=== PATIENT | female | born 1950 | race African-American/Black ===

== ENCOUNTER 2021-12-05 12:23 | Emergency (ER) | payer OTHER, MEDICARE, SELFPAY ==
[2021-12-05] VITALS (33 sets, daily range): BP systolic 100–113; BP diastolic 53–59; PULSE 105–112; RESP 4–25; TEMP 37.1; O2SAT 91–100
--- NOTE | ~2021-12-05 | CT_ITS ---
EXAMINATION: CT brain wo con DATE: 12/05/2021 13:28 INDICATION: Lethargy TECHNIQUE: Computed tomography (CT) of the head was performed without intravenous contrast. Sagittal and coronal reconstructions were performed. The mA was adjusted according to patient size. Iterative reconstruction technique was employed. The dose-length product was 605.33 mGy-cm. COMPARISON: None FINDINGS: No acute intracranial hemorrhage, acute infarction or abnormal extra axial fluid collection. There is minimal scattered white matter hypoattenuation consistent with chronic small vessel ischemic disease . Ventricles are normal and symmetric. No mass/mass effect. Intracranial calcified cerebral atherosc lerosis is noted. The orbits, paranasal sinuses and mastoid air cells are normal. IMPRESSION: 1. Normal aging brain. No acute intracranial process. Reviewed, dictated and finalized at location A.
--- NOTE | ~2021-12-05 | XR_ITS ---
EXAMINATION: XR chest 1V DATE: 12/05/2021 13:30 INDICATION: Lethargy TECHNIQUE: frontal view of the chest was obtained. COMPARISON: None FINDINGS: Increased prominence of the left hilar and infrahilar bronchovascular pelvic or relative to the right which is likely due to some leftward rotation of the patient. No other airspace opacities, pulmonary edema, pleural effusion or pneumothorax. Heart size is normal. Mild to moderate degenerative skeleta l changes in the spine and at the left shoulder. IMPRESSION: 1. No acute cardiopulmonary disease. Reviewed, dictated and finalized at location A.
--- NOTE | 2021-12-05 12:33 | ED.AMS ---
HPI - Altered Mental Status General Chief Complaint: Altered Mental Status Stated Complaint: Lethargic Time Seen by Provider: 12/05/21 12:33 Source: EMS and RN notes reviewed Mode of arrival: EMS Limitations: clinical condition History of Present Illness HPI narrative: Patient is 71 years old -[place] female brought to the emergency room by ambulance from [facility] for increased lethargy low blood pressure and fever. No family member at the bedside at this time. Review of Systems Review of Systems: ROS unobtainable: Yes unobtainable due to medical condition Exam Narrative: General appearance: Well-developed, well-nourished, lethargic, responsive to painful stimulation only by moving her arms. Skin: Right medial 3 toes gangrene, open wound on the right distal lower leg, status post amputation left toes with thick purulent discharge leaking out of the medial side of the wound, open wound mid lower abdomen, no discharge, Head: Normocephalic, nontraumatic Eyes: Clear conjunctiva ENT: Dry oral cavity Neck: Supple, nontender Chest and respiratory: Mild diminution of air entry bilaterally with a scattered rhonchi and rales Heart: Tachycardia Abdomen: Soft, nontender, no organomegaly, quiet bowel sounds, left colostomy bag in place Vascular: Normal peripheral pulses, poor capillary reflex Neurologic: Responsive to painful stimulation Course Course Emergency Course: Patient's sister who has the power of slate trimmer requested to do nothing and send patient back to the long term.. She is telling me that patient does not wish to survive with a condition like this Hospice was contacted by our nurse, agreed with the long term return. Vital Signs Vital signs: Vital Signs Pulse Rate 110 H 12/05/21 12:27 Respiratory Rate 12 12/05/21 12:27 Blood Pressure 100/58 L 12/05/21 12:27 Pulse Oximetry 100 12/05/21 12:27 Oxygen Delivery Nasal Cannula 12/05/21 12:27 Oxygen Flow Rate 4 12/05/21 12:27 Temperature 37.1 C 12/05/21 13:37 Pulse Rate 110 H 12/05/21 17:01 Respiratory Rate 6 L 12/05/21 17:01 Blood Pressure 110/56 L 12/05/21 17:01 Pulse Oximetry 100 12/05/21 17:01 Oxygen Delivery Nasal Cannula 12/05/21 12:27 Oxygen Flow Rate 4 12/05/21 12:27 MDM - Altered Mental Status Imaging Data Radiologist's impression: Impressions Head CT 12/05/21 13:34 IMPRESSION: 1. Normal aging brain. No acute intracranial process. Chest X-Ray 12/05/21 13:36 IMPRESSION: 1. No acute cardiopulmonary disease. ECG Data EKG #1: Attestation: I personally reviewed and interpreted this ECG as follows: ECG completion date: 12/05/21 ECG completion time: 15:05 Interpretation: Sinus tachycardia at 118 bpm, low QRS complexes, nonspecific T wave abnormalities, abnormal EKG, no old EKG for comparison Critical Care Time Critical Care Time Critical Care Time: Yes Total Critical Care Time: 30 Discharge Plan Discharge Clinical Impression: Hospice care, Gangrenous toe, Left foot infection Patient Disposition: NH Long Term/Asst Living Condition: Serious Instructions: Antibiotic Form, Durable Power of Finish Patcher for Healthcare Decisions (ED), Surgical Site Infections (ED), Gangrene (DC) Additional Instructions: Oxygen as needed, morphine 4 mg IM every 4 hours as needed, Zofran 4 mg ODT every 4 hours as needed. Contact hospice for more details
--- NOTE | 2021-12-05 12:40 | ECG_ITS ---
Measurements Intervals [employer] Rate: 110 P: -10 CA: 144 QRS: 40 QRSD: 84 T: -10 QT: 316 QTc: 429 Interpretive Statements SINUS TACHYCARDIA LOW QRS VOLTAGE IN LIMB LEADS BORDERLINE ST-T WAVE ABNORMALITY- INFERIOR LEADS ABNORMAL ECG Electronically Signed On 12-05-2021 12:48:30 CDT by Darrius Lara D.O.
--- NOTE | 2021-12-05 13:15 | PC.NURSE ---
Pt has necrotic tissue on right 1,2,3 and 4 toe and necrotic wound on right calf, pt also has an amputated left 1st toe with bone visable. Left 2,3 and 4 toe necorotic as well.
--- NOTE | 2021-12-05 13:19 | PC.NURSE ---
Spoke with pt FREYA, requested pt to be transferred back to half-way and make pt DNR on hospice. Viviana, from hospice, updated on pt status and she stated that pt to be transferred back to half-way and on out pt hospice.
--- NOTE | 2021-12-05 13:27 | PCCCNOTE ---
spoke with RN whom stated the ER MD would be discharging patient back to ENR. CC called Cuca from ENR, and made aware that patient/patients family would like to be made a DNR. Viviana from [facility] hospice also aware from bedside RN. CC will continue to follow for any needs that may arise.
--- NOTE | 2021-12-05 13:44 | PC.NURSE ---
[place] rayo to stop all blood work.
--- NOTE | 2021-12-05 18:49 | PC.NURSE ---
Redressed necrotic wounds on right foot 1, 2, 3, 4 and 5 with vasoline dressing, kerlix and coban. Redressed left necrotic stump with bone from greater toe exposed. Redressed necrotic wounds on bilateral posterior calves. Replaced varela catheter with a coude. Copious amounts of foul and putrid discharged from wounds and pus draining from old catheter. Informed Dr. Hoffman of additional wounds found.
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
== END 2021-12-05 18:45 | disposition hospice, inpatient (51) ==
PROVIDERS: Emergency Provider Emergency Medicine; PCP Internal Medicine
DX: I96 Gangrene, not elsewhere classified (principal); R00.0 Tachycardia, unspecified
CPT/HCPCS: 51701; 70450; 71045; 93005; 99284